=== PATIENT | female | born 1960 | race Two or more races ===

== ENCOUNTER 2024-11-25 19:59 | Emergency (ER) | payer BC, OTHER ==
[~2024-11-25] VITALS: Ht 165.1 cm; Wt 90.7 kg
[2024-11-25 20:53] LABS: CALCIUM, SERUM 9.9 mg/dL (8.5-10.1); CREATININE 1.2 mg/dL (0.6-1.3); POTASSIUM 4.1 mmol/L (3.5-5.1)
[2024-11-25 20:59] LABS: ALBUMIN 3.8 g/dL (3.4-5.0); BASOPHILS % (AUTO) 0.3 % (0.0-2.0); BILIRUBIN,DIRECT 0.1 mg/dL (0.0-0.2); BILIRUBIN,TOTAL 0.3 mg/dL (0.2-1.0); EOSINOPHILS # (AUTO) 0.2 K/uL (0.0-0.7); EOSINOPHILS % (AUTO) 1.6 % (0.0-6.0); HEMATOCRIT 45 % (33-45); HEMOGLOBIN 14.8 g/dL (11.5-14.8); LYMPHOCYTES # (AUTO) 1.9 K/uL (0.8-4.8); LYMPHOCYTES % (AUTO) 15.7 % (20.0-44.0); MEAN CORPUSCULAR HEMOGLOBIN 31 PG (26.0-33.0); MEAN CORPUSCULAR HGB CONC 33 g/dl (31.0-36.0); MEAN CORPUSCULAR VOLUME 94 fL (82-100); MONOCYTES # (AUTO) 0.7 K/uL (0.1-1.30); MONOCYTES % (AUTO) 5.6 % (2.0-12.0); NEUTROPHILS # (AUTO) 9.3 K/uL (1.8-8.9); NEUTROPHILS % (AUTO) 76.8 % (43.0-81.0); PLATELET COUNT (AUTO) 307 K/uL (150-450); RED BLOOD CELL COUNT(AUTO) 4.79 MIL/uL (4.0-5.2); RED CELL DISTRIBUTION WIDTH 13.9 % (11.5-15.0); TOTAL PROTEIN, SERUM 7.7 g/dL (6.4-8.2); WHITE BLOOD COUNT (AUTO) 12.1 K/uL (4.3-11.0)
[2024-11-25] MEDS ORDERED: MORPHINE SULFATE INJ 4 MG/ML DISP.SYRIN ONE (20:59)
[2024-11-25] MEDS ORDERED: ONDANSETRON HCL/PF 4 MG/2 ML VIAL ONE (20:59)
[2024-11-25] MEDS: IV NS 0.9% 1,000 ML BAG IV ONE (21:03)
[2024-11-25] MEDS: ONDANSETRON HCL/PF 4 MG/2 ML VIAL IVP ONE (21:04)
[2024-11-25] MEDS: MORPHINE SULFATE INJ 2 MG/ML DISP.SYRIN IV ONE (21:04)
[2024-11-25] MEDS ORDERED: ONDA4TAB11 PO (23:13)
[2024-11-25] MEDS ORDERED: FAMO20TA8 PO (23:13)
[2024-11-25 23:25] LABS: APPEARANCE,URINE CLEAR (CLEAR); BILIRUBIN,URINE NEGATIVE (NEGATIVE); BLOOD, URINE NEGATIVE Ery/uL (NEGATIVE); COLOR,URINE YELLOW (YELLOW); KETONES,URINE NEGATIVE (NEGATIVE); LEUKOCYTE ESTERASE ,URINE NEGATIVE (NEGATIVE); NITRITE, URINE NEGATIVE (NEGATIVE); PROTEIN,URINE NEGATIVE (NEGATIVE); UGLUCOSE NEGATIVE (NEGATIVE); UROBILINOGEN,URINE 0.2 EU/dL (0.2)
[2024-11-26] MEDS ORDERED: LEVOFLOXACIN 500 MG /D5W 100ML 100 ML IV ONE (02:39)
[2024-11-26] MEDS: LEVOFLOXACIN 500 MG /D5W 100ML 500 MG/100 ML PIGGYBACK IV ONE (02:59)
[2024-11-26 03:40] VITALS: BP 115/70; TEMP 98.2; O2SAT 99
[2024-11-26] MEDS ORDERED: ONDA4TAB11 PO (14:40)
[2024-11-26] MEDS ORDERED: FAMO20TA8 PO (14:40)
== END 2024-11-26 03:41 | disposition home or self-care (01) ==
LOC: ER 20:01
DX: R10.84 Generalized abdominal pain (principal); R11.2 Nausea with vomiting, unspecified; R19.7 Diarrhea, unspecified; I10 Essential (primary) hypertension; J45.909 Unspecified asthma, uncomplicated
CPT/HCPCS: 99285; 74176; 96361; 96375; 85025; 80048; 83690; 80076; 81003; 36415; 96365; 87040; J2270; J2405; J1956